=== PATIENT | male | born 1950 | race Two or more races ===

== ENCOUNTER 2017-06-09 05:30 | Day surgery (SDC) | payer OTHER ==
[~2017-06-09 05:30] MED LIST: TAMS0.4C PO
[2017-06-09] MEDS ORDERED: ULTRACET PO (10:05)
== END 2017-06-09 14:15 | disposition home or self-care (01) ==
LOC: CIR.AMB 05:30
DX: D12.8 Benign neoplasm of rectum (principal); K92.1 Melena; K64.1 Second degree hemorrhoids

== ENCOUNTER 2017-12-01 12:01 | Day surgery (SDC) | payer OTHER ==
[~2017-12-01 12:01] MED LIST changes: +AMLODIPINE PO; +ULTRACET PO
[2017-12-01] MEDS ORDERED: TYLENOL EXTRA500 MG PO (19:26)
[2017-12-01] MEDS ORDERED: ADVIL200 MG PO (19:26)
== END 2017-12-01 19:30 | disposition home or self-care (01) ==
LOC: CIR.AMB 12:01
DX: K60.3 Anal fistula (principal); K62.89 Other specified diseases of anus and rectum

== ENCOUNTER → 2017-12-28 | Outpatient (CLI) | payer OTHER ==
[~2017-12-28] MED LIST changes: +ADVIL200 MG PO; +TYLENOL EXTRA500 MG PO
== END | disposition home or self-care (01) ==
LOC: SONOGRAMA 11:05 → MAMO-SONO 11:15
DX: M72.2 Plantar fascial fibromatosis (principal)